=== PATIENT | male | born 1935 ===

== ENCOUNTER 2024-02-11 10:19 | Outpatient (CLI) | payer MEDICARE, MEDICAID, SELFPAY ==
--- NOTE | 2024-02-11 10:30 | CT_ITS ---
WS: [id number] CT ABDOMEN AND PELVIS WITH CONTRAST HISTORY: NEOPLASM OF URINARY BLADDER TECHNIQUE: Imaging performed of the abdomen and pelvis with IV contrast. Dual phase imaging of the ab domen and pelvis. Coronal and sagittal reformats are submitted. All CT scans at [facility] us e at least one of these dose optimization techniques: automated exposure control; mA and/or kV adjust ment per patient size (includes targeted exams where dose is matched to clinical indication); or iter ative reconstruction. IV CONTRAST: Omnipaque 350; 100 mL IV. Oral contrast: No DLP: 729.74 mGy.cm COMPARISON: Renal ultrasound 01/28/2024 Lower thorax: Mild elevation of the RIGHT hemidiaphragm. Heart is normal size. No hiatal hernia. Liver/biliary system: Normal size liver with numerous cysts of various sizes. No solid mass. No bile duct dilatation. Normal portal vein. Gallbladder: Normal. No gallstones or wall thickening. No pericholecystic fluid. Pancreas: Normal size pancreas and pancreatic duct. No adjacent inflammation. Spleen: Normal size spleen. No mass or infarct. Adrenal glands: Normal. Right kidney: Normal size. Too small to characterize hypodensities. No solid mass or obstruction. Left kidney: Too small to characterize cortical hypodensities. No solid mass or obstruction. There is a nonobstructing 10 mm calcification in the lower pole. Aorta: Mild atherosclerosis with no aneurysm. Calcified plaque in the proximal celiac axis and SMA. 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 Heavy splenic artery calcification. Lymphadenopathy: None. Free fluid: None. GI tract: Nondistended stomach. No small bowel obstruction. Normal appendix. Mild diffuse colonic div erticular disease. No acute diverticulitis. Abdominal wall: Tiny fat-containing umbilical hernia. Pelvis: Markedly abnormal urinary bladder. Urinary bladder is well distended. There are large lobulat ed masses within greater than 50% of the urinary bladder extending inferiorly into the prostate gland . Some of the masses contain calcifications and there is diffuse wall thickening. These masses do enh ance. The largest component of the solid mass extends over a length of 7.0 cm x 6.8 x 5.6 cm. Mass is contiguous with the prostate gland. No free fluid or adenopathy within the pelvis. Bones: Degenerative disc disease and spondylosis lumbar spine and lower thoracic spine. Intramedullar y finesse noted in the proximal RIGHT femur. Variable attenuation within the RIGHT pelvis may be from [place] or trauma. Cannot confirm osteoblastic or osteolytic bone disease on this appearance. Numerous lytic and sclerotic changes throughout the RIGHT pelvis. CT/CT abdomen pelvis w con* [id number] IMPRESSION: 1. Extensive enhancing masses some containing calcification filling a large po rtion of the urinary bladder consistent with a neoplasm until proven otherwise. Masses are in continuity with the enlarged prostate gland. 2. No ascites and no adenopathy in the abdomen or pelvis. 3. Hepatic cysts. 4. No renal mass or obstruction. There is a nonobstructing calcification lower pole LEFT kidney. 5. Mild diffuse colonic diverticular disease. 6. 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 7. Diffuse mixed sclerotic and lytic changes throughout the entire RIGHT pelvi s probably posttraumatic. Less likely neoplastic due to the distribution.
[2024-02-11 11:14] LABS: Blood Urea Nitrogen 22 mg/dL (8-23)
[2024-02-11] MEDS: iohexol 350 mg/mL 500 mL Btl (per mL) IV (11:33)
== END 2024-02-11 10:20 | disposition home or self-care (01) ==
LOC: RAD 10:21
PROVIDERS: PCP Family Medicine; Visit Provider Family Medicine
DX: M51.36 Other intervertebral disc degeneration, lumbar region (principal); N40.0 Benign prostatic hyperplasia without lower urinary tract symptoms; K57.30 Diverticulosis of large intestine without perforation or abscess without bleeding; I70.0 Atherosclerosis of aorta; K42.9 Umbilical hernia without obstruction or gangrene; K76.89 Other specified diseases of liver; N31.2 Flaccid neuropathic bladder, not elsewhere classified; D49.4 Neoplasm of unspecified behavior of bladder
CPT/HCPCS: 74177; 82565; 84520; Q9967